=== PATIENT | female | born 1985 | race Caucasian/White ===

== ENCOUNTER 2017-01-14 23:47 | Emergency (ER) | payer BC ==
[~2017-01-14] VITALS: Ht 160 cm; Wt 64.5 kg
[2017-01-14 23:49] VITALS: BP 128/83
== END 2017-01-15 00:41 | disposition home or self-care (01) ==
LOC: ED 01-15 00:19
DX: J30.2 Other seasonal allergic rhinitis (principal); J06.9 Acute upper respiratory infection, unspecified
CPT/HCPCS: 99283

== ENCOUNTER 2017-08-20 22:54 | Emergency (ER) | payer SELFPAY ==
[~2017-08-20] VITALS: Ht 157.5 cm; Wt 58.2 kg
[2017-08-20 22:54] VITALS: BP 118/78
[2017-08-20] MEDS ORDERED: PROPARACAINE OPHTH 0.5%, 15ML ONE (23:31)
[2017-08-20] MEDS ORDERED: FLUORESCEIN OPHTHALMIC 1 MG STRIP ONE (23:32)
== END 2017-08-21 00:12 | disposition home or self-care (01) ==
LOC: ED 08-21 00:05
DX: H10.021 Other mucopurulent conjunctivitis, right eye (principal); F17.200 Nicotine dependence, unspecified, uncomplicated
CPT/HCPCS: 99283

== ENCOUNTER 2017-09-29 11:27 | Emergency (ER) | payer SELFPAY ==
[~2017-09-29] VITALS: Ht 157.5 cm; Wt 56.7 kg
[2017-09-29 11:28] VITALS: BP 122/82
[2017-09-29 12:15] LABS: BASOPHILS # (AUTO) 0.02 x10^3/uL (0-0.1); BASOPHILS % (AUTO) 0 % (0-1); EOSINOPHILS # (AUTO) 0.06 x10^3/uL (0-0.4); EOSINOPHILS % (AUTO) 1 % (1-7); LYMPHOCYTES # (AUTO) 1.39 x10^3/uL (1-3.4); LYMPHOCYTES % (AUTO) 27 % (22-44); MD NO; MEAN CORPUSCULAR HEMOGLOBIN 31.7 pg (27.0-34.8); MEAN CORPUSCULAR HGB CONC 34.4 g/dL (32.4-35.8); MEAN CORPUSCULAR VOLUME 91.9 fL (80-100); MONOCYTES # (AUTO) 0.37 x10^3/uL (0.2-0.8); MONOCYTES % (AUTO) 7 % (2-9); NEUTROPHILS # (AUTO) 3.36 x10^3/uL (1.8-6.8); NEUTROPHILS % (AUTO) 65 % (42-75); PLATELET COUNT 248 x10^3/uL (130-400); RED BLOOD COUNT 4.89 x10^6/uL (3.82-5.3); RED CELL DISTRIBUTION WIDTH 12.6 % (9.6-15.2)
[2017-09-29 12:21] LABS: ALBUMIN 4.2 g/dL (3.4-5.0); ANION GAP 9 mmol/L (5-15); CALCIUM 8.8 mg/dL (8.5-10.1); CHLORIDE 111 mmol/L (98-107)
[2017-09-29 12:26] LABS: CREATININE 0.78 mg/dL (0.55-1.02)
== END 2017-09-29 15:40 | disposition home or self-care (01) ==
LOC: ED 15:25
DX: R55 Syncope and collapse (principal); F17.200 Nicotine dependence, unspecified, uncomplicated
CPT/HCPCS: 36415; 80048; 82040; 84703; 85025; 93005; 99285

== ENCOUNTER 2018-04-04 11:52 | Emergency (ER) | payer SELFPAY ==
[~2018-04-04] VITALS: Ht 157.5 cm; Wt 56.6 kg
[2018-04-04 11:59] VITALS: BP 117/83
== END 2018-04-04 12:37 | disposition home or self-care (01) ==
LOC: ED 12:23
DX: K02.9 Dental caries, unspecified (principal); F17.200 Nicotine dependence, unspecified, uncomplicated
CPT/HCPCS: 99283

== ENCOUNTER 2018-11-21 21:29 | Emergency (ER) | payer SELFPAY ==
[~2018-11-21] VITALS: Ht 165.1 cm; Wt 65.2 kg
[2018-11-21 21:32] VITALS: BP 129/87
[2018-11-21] MEDS ORDERED: AMOXICILLIN 500 MG CAPSULE ONE (22:16)
--- NOTE | 2018-11-21 22:18 | NUR ---
PT MEDICATED PER ORDER.
--- NOTE | 2018-11-21 22:26 | NUR ---
Patient/Caregiver given discharge instructions and they have confirmed that they understand the instructions. Patient ambulatory with steady gait.
[2018-11-21] MEDS ORDERED: AMOXICILLIN 500 MG CAPSULE PO ONE (22:30)
== END 2018-11-21 22:27 | disposition home or self-care (01) ==
LOC: ED 22:20
DX: K04.7 Periapical abscess without sinus (principal); K02.9 Dental caries, unspecified
CPT/HCPCS: 99283